=== PATIENT | female | born 1985 | race African-American/Black ===

== ENCOUNTER 2017-07-05 21:18 | Emergency (ER) | payer SELFPAY ==
[2017-07-05] MEDS ORDERED: CEPHALEXIN 500 MG CAPSULE PO ONE (22:39)
[2017-07-05] MEDS ORDERED: SULFAMETHOXAZOLE/TRIMETHOPRIM 800-160 MG TABLET PO ONE (22:39)
--- NOTE | 2017-07-05 22:44 | ER Document Report ---
HPI - HPI Patient complains to provider of: insect bite Pain Level: 3 Context: Patient is a 31-year-old female who comes emergency department for chief complaint of areas on her left upper arm where she believes she was bitten by an insect, she states the areas were initially itchy and red, she states that these have become mildly painful and has had increased redness today. Past medical history of surgically treated hidradenitis suppurativa, she denies any current daily medications. - REPRODUCTIVE Reproductive: DENIES: : - DERM Skin Color: Normal Past Medical History - General Information source: Patient - Social History Smoking Status: Never Smoker Frequency of alcohol use: None Drug Abuse: None Lives with: Family Family History: Reviewed & Not Pertinent, Hypertension - Medical History Medical History: Negative Renal/ Medical History: Denies: Hx Peritoneal Dialysis Past Surgical History: Reports: Other - Axillary surgery for hidradenitis suppurativa - Immunizations Hx Diphtheria, Pertussis, Tetanus Vaccination: Yes Vertical Provider Document - CONSTITUTIONAL General Appearance: WD/WN, No Apparent Distress - INFECTION CONTROL TRAVEL OUTSIDE OF THE [place] IN LAST 30 DAYS: No - HEENT HEENT: Atraumatic, Normal ENT Exam, Normocephalic - NECK Neck: Normal Inspection - RESPIRATORY Respiratory: Breath Sounds Normal, No Respiratory Distress - CARDIOVASCULAR Cardiovascular: Regular Rate, Regular Rhythm - GI/ABDOMEN Gastrointestinal: Abdomen Soft, Abdomen Non-Tender - BACK Back: Normal Inspection - MUSCULOSKELETAL/EXTREMETIES Musculoskeletal/Extremeties: MAEW, FROM, Non-Tender - DERM Integumentary: Warm - There are 3 distinct areas of patchy redness with warmth and erythema which is notable compared to the surrounding areas. Questionable central insect bite. No induration or fluctuance. No nearby lymphadenopathy. Course - Re-evaluation Re-evalutation: Patient does have erythematous and warm mildly tender areas over her left upper lateral forearm. I did apply a bedside ultrasound to the areas, there is no fluid collection. There is no significant induration, there is no fluctuance. Appears to be cellulitis with no evidence of abscess at this time. I do suspect these were insect bites because patient still has a mild amount of itching component. No evidence of necrotizing fasciitis or severe cellulitis. Placing on antihistamines, antibiotics, discussed treatment, follow-up, return precautions. Patient states understanding and agreement. Discharge - Discharge Clinical Impression: Skin infection Insect bite Qualifiers: Encounter type: initial encounter Qualified Code(s): W57.XXXA - Bitten or stung by nonvenomous insect and other nonvenomous arthropods, initial encounter Condition: Stable Disposition: HOME, SELF-CARE Additional Instructions: Examination does indicate insect bite/sting, also indicate early infection, no abscess noted on your evaluation at this time. Take the antibiotics as prescribed, apply warm compress, take the antihistamines as prescribed. Return to the emergency department for any concerning worsening symptoms including pain , fever, or any other concerning symptoms. Prescriptions: Cephalexin Monohydrate [Keflex 500 mg Capsule] 500 mg PO QID #28 capsule Cetirizine HCl [Zyrtec 10 mg Tablet] 1 tab PO DAILY #30 tablet Famotidine [Pepcid 20 mg Tablet] 20 mg PO DAILY #12 tablet Sulfamethoxazole/Trimethoprim [Bactrim Ds Tablet] 1 each PO BID #14 tablet
[2017-07-05 23:32] VITALS: BP 128/68
== END 2017-07-05 23:13 | disposition home or self-care (01) ==
LOC: ER 21:18
DX: T14.8 Other injury of unspecified body region (principal); L08.9 Local infection of the skin and subcutaneous tissue, unspecified; W57.XXXA Bitten or stung by nonvenomous insect and other nonvenomous arthropods, initial encounter
CPT/HCPCS: 99283

== ENCOUNTER 2017-07-19 20:37 | Emergency (ER) | payer SELFPAY ==
--- NOTE | 2017-07-19 22:38 | ER Document Report ---
HPI - HPI Pain Level: 4 Notes: Patient is a 31-year-old female who presents the ED complaining of left ear swelling since this morning and pain. Patient states that the pain does not radiate. Patient denies any internal ear pain or drainage. She still eating and drinking without any difficulties. Patient states that the pain of her ear has been swollen. Patient is not sure if he was bit by an insect, but denies any other injury. Denies any headache, fever, head injury, neck pain/stiffness , changes in vision/speech/mentation/hearing, URI, sore throat, chest pain, palpitations, syncope, cough, shortness of breath, wheeze, dyspnea, abdominal pain, nausea/vomiting/diarrhea, urinary retention, dysuria, or rash. Patient denies any drug allergies or significant medical history otherwise. She admits to smoking but denies any other illicit drug use. Her PCM is [facility]. - ROS Notes: REVIEW OF SYSTEMS: CONSTITUTIONAL : Denies fever, chills, or sweats. Denies recent illness. EENT: see hpi CARDIOVASCULAR: Denies chest pain. Denies palpitations or racing or irregular heart beat. Denies ankle edema. RESPIRATORY: Denies cough, cold, or chest congestion. Denies shortness of breath, difficulty breathing, or wheezing. GASTROINTESTINAL: Denies abdominal pain or distention. Denies nausea, vomiting , or diarrhea. Denies blood in vomitus, stools, or per rectum. Denies black, tarry stools. Denies constipation. GENITOURINARY: Denies difficulty urinating, painful urination, burning, frequency, blood in urine, or discharge. MUSCULOSKELETAL: Denies back or neck pain or stiffness. Denies joint pain or swelling. SKIN: see hpi NEUROLOGICAL: Denies confusion or altered mental status. Denies passing out or loss of consciousness. Denies dizziness or lightheadedness. Denies headache. Denies weakness or paralysis or loss of use of either side. Denies problems with gait or speech. PSYCHIATRIC: Denies anxiety or stress. Denies depression, suicidal ideation, or homicidal ideation. ALL OTHER SYSTEMS REVIEWED AND NEGATIVE. Dictation was performed using [employer] voice recognition software - REPRODUCTIVE Reproductive: DENIES: : - DERM Skin Color: Normal Past Medical History - Social History Smoking Status: Current Every Day Smoker Family History: Reviewed & Not Pertinent, Hypertension Renal/ Medical History: Denies: Hx Peritoneal Dialysis Past Surgical History: Reports: Other - Axillary surgery for hidradenitis suppurativa - Immunizations Hx Diphtheria, Pertussis, Tetanus Vaccination: Yes Vertical Provider Document - CONSTITUTIONAL Agree With Documented VS: Yes Notes: PHYSICAL EXAMINATION: GENERAL: Well-appearing, well-nourished and in no acute distress. HEAD: Atraumatic, normocephalic. EYES: Pupils equal round and reactive to light, extraocular movements intact, sclera anicteric, conjunctiva are normal. ENT: Lt pinna/auricle mildly inflamed vs right and mildly tender. No abscess or erythema noted. No mastoid tenderness or protrusion of the auricle. Crease intact. EAC clear b/l. TM's intact b/l without erythema, fluid, or perforation. Nares patent and without discharge. oropharynx clear without exudates. No tonsilar hypertrophy or erythema. Moist mucous membranes. No sinus tenderness. NECK: Normal range of motion, supple without lymphadenopathy. No rigidity/ meningismus. LUNGS: Breath sounds clear to auscultation bilaterally and equal. No wheezes rales or rhonchi. HEART: Regular rate and rhythm without murmurs, rubs, gallops. Extremities: No cyanosis, clubbing, or edema b/l. Peripheral pulses 2+. Capillary refill less than 3 seconds. NEUROLOGICAL: Cranial nerves grossly intact. Normal speech, normal gait. Normal sensory, motor exams PSYCH: Normal mood, normal affect. SKIN: Warm, Dry, normal turgor, no rashes or lesions noted. - INFECTION CONTROL TRAVEL OUTSIDE OF THE [place] IN LAST 30 DAYS: No - RESPIRATORY O2 Sat by Pulse Oximetry: 99 Course - Re-evaluation Re-evalutation: 07/19/17 22:50 Patient is an afebrile, well-hydrated, 31-year-old female presents the ED with a swollen left auricle, suspect possible mild cellulitis w/o abscess. Vitals are stable. PE otherwise unremarkable at this time. Low suspicion for any mastoiditis, hematoma, meningitis, sepsis, or other deep space infection. As precaution, we will cover her with keflex and bactrim twice daily for 7 days. Conservative measures for symptoms otherwise. Advised recheck with ENT this week. Recheck with your PCM this week as well. Return to the ED with any worsening/concerning symptoms otherwise as reviewed in discharge. Patient is in agreement. - Vital Signs Vital signs: Temp Pulse Resp BP Pulse Ox 99.0 F 82 16 112/64 99 07/19/17 21:19 07/19/17 21:19 07/19/17 21:19 07/19/17 21:19 07/19/17 21:19 Discharge - Discharge Clinical Impression: Cellulitis of auricle of left ear Condition: Stable Disposition: HOME, SELF-CARE Additional Instructions: Maintain adequate fluid and food intake Take antibiotics as directed Tylenol/ibuprofen as needed Monitor symptoms closely for any acute changes Recheck with your PCM this week Schedule a consult with ENT this week for recheck as well Return to the ED with any worsening symptoms and/or development of fever, headache, dizziness, worsening swelling, abscess, purulent discharge, chest pain , palpitations, syncope, shortness of breath, trouble breathing, abdominal pain , n/v/d, or other worsening symptoms that are concerning to you. Prescriptions: Cephalexin Monohydrate [Keflex 500 mg Capsule] 500 mg PO BID #14 capsule Sulfamethoxazole/Trimethoprim [Bactrim Ds Tablet] 1 each PO BID #14 tablet Forms: Smoking Cessation Education Referrals: JACOB ANGELA MD [[facility]] - 07/21/17
[2017-07-20 04:42] VITALS: BP 102/66
== END 2017-07-19 23:10 | disposition home or self-care (01) ==
LOC: ER 20:37
DX: H60.12 Cellulitis of left external ear (principal); F17.200 Nicotine dependence, unspecified, uncomplicated
CPT/HCPCS: 99282

== ENCOUNTER 2018-06-10 12:08 | Emergency (ER) | payer SELFPAY ==
[2018-06-10 12:15] VITALS: BP 133/72
[2018-06-10] MEDS ORDERED: CEPHALEXIN 500 MG CAPSULE PO ONE (12:27)
--- NOTE | 2018-06-10 12:33 | ER Document Report ---
HPI - HPI Patient complains to provider of: Swollen lymph node Onset: Other - 3 days Onset/Duration: Persistent Quality of pain: Achy Pain Level: 2 Context: She presents complaining of tender swollen lymph node to right side of neck for the past 3 days. Patient does states she has had a tender bump in her ear for the past month. Patient denies any fever. Patient denies any sore throat or dental problems. Associated Symptoms: Earache, Other - Tender lymph nodes. denies: Fever Exacerbated by: Denies Relieved by: Denies Similar symptoms previously: No Recently seen / treated by doctor: No - ROS ROS below otherwise negative: Yes Systems Reviewed and Negative: Yes All other systems reviewed and negative - CONSTITUTIONAL Constitutional: DENIES: Fever - EENT EENT: REPORTS: Ear Pain - GASTROINTESTINAL Gastrointestinal: DENIES: Nausea, Patient vomiting - REPRODUCTIVE Reproductive: DENIES: : - DERM Skin Color: Normal Skin Problems: None Past Medical History - General Information source: Patient - Social History Smoking Status: Current Every Day Smoker Smoking Education Provided: Yes Frequency of alcohol use: Occasional Drug Abuse: Marijuana Occupation: none Family History: Reviewed & Not Pertinent, Hypertension Renal/ Medical History: Denies: Hx Peritoneal Dialysis Skin Medical History: Reports Other - Hidradenitis Past Surgical History: Reports: Other - Axillary surgery for hidradenitis suppurativa - Immunizations Hx Diphtheria, Pertussis, Tetanus Vaccination: Yes Vertical Provider Document - CONSTITUTIONAL Agree With Documented VS: Yes Exam Limitations: No Limitations General Appearance: WD/WN, No Apparent Distress - INFECTION CONTROL TRAVEL OUTSIDE OF THE [place] IN LAST 30 DAYS: No - HEENT HEENT: Atraumatic, Normocephalic. negative: Pharyngeal Exudate, Pharyngeal Tenderness, Pharyngeal Erythema, Tympanic Membrane Red, Tympanic Membrane Bulging Notes: Patient with tenderness to right ear dayana, mild erythema, shunt with prominent tonsillar and upper posterior cervical chain lymph node, normal skin color and temperature overlying prominent lymph nodes. - NECK Neck: Lymphadenopathy-Right - RESPIRATORY Respiratory: Breath Sounds Normal, No Respiratory Distress - CARDIOVASCULAR Cardiovascular: Regular Rate, Regular Rhythm - BACK Back: Normal Inspection - MUSCULOSKELETAL/EXTREMETIES Musculoskeletal/Extremeties: LAVONNE SALINAS - NEURO Level of Consciousness: Awake, Alert, Appropriate Motor/Sensory: No Motor Deficit - DERM Integumentary: Warm, Dry, No Rash Course - Re-evaluation Re-evalutation: 06/10/18 12:31 Patient without any obvious dental decay or any skin lesions to the head or neck. Patient does have a mild area of erythema with a central open sore to the dayana of her right ear. Patient states this area has been tender for some time. Will cover with antibiotics and refer to ENT for further follow-up. - Vital Signs Vital signs: Temp Pulse Resp BP Pulse Ox 99.5 F 76 14 133/72 H 97 06/10/18 12:12 06/10/18 12:12 06/10/18 12:12 06/10/18 12:12 06/10/18 12:12 Discharge - Discharge Clinical Impression: Cellulitis of right ear canal Condition: Stable Disposition: HOME, SELF-CARE Instructions: Cellulitis ([facility]), Cephalexin ([facility]), Lymphadenopathy ([facility]) Additional Instructions: Return immediately for any new or worsening symptoms Followup with your primary care provider, call tomorrow to make a followup appointment Follow-up with an manager e learning for further evaluation Prescriptions: Cephalexin Monohydrate [Keflex 500 mg Capsule] 500 mg PO Q6H 5 Days capsule Naproxen [Naprosyn 250 Nmg Tablet] 1 tab PO BID #14 tablet Forms: Smoking Cessation Education Referrals: [facility] [Provider Group] - Follow up as needed
== END 2018-06-10 12:44 | disposition home or self-care (01) ==
LOC: ER 12:08
DX: H60.11 Cellulitis of right external ear (principal); H92.01 Otalgia, right ear; R59.0 Localized enlarged lymph nodes; F17.200 Nicotine dependence, unspecified, uncomplicated
CPT/HCPCS: 99283

== ENCOUNTER 2018-07-09 13:32 | Emergency (ER) | payer BC ==
--- NOTE | 2018-07-09 15:17 | ER Document Report ---
ED General - General Chief Complaint: Abscess Stated Complaint: POSSIBLE ABSCESS Time Seen by Provider: 07/09/18 15:02 Mode of Arrival: Ambulatory Information source: Patient TRAVEL OUTSIDE OF THE [place] IN LAST 30 DAYS: No - HPI Notes: Patient is a pleasant 32-year-old black female history of hidradenitis suppurativa with multiple previous incision and drainages on the right axillary region presents with report of left axillary swelling for the last 2 days. She has no history of diabetes. She denies any fever chills or trauma to the region. She reports no numbness or paresthesia. No chest pain or difficulty breathing. Patient reports she wants only antibiotics and does not want an incision and drainage performed yet, as she thinks she is catching it early, and she reported having significant scarring on the right axillary region which necessitated a larger resection once the incision and drainages were started surgically. No insect bites. - Related Data Allergies/Adverse Reactions: No Known Allergies Allergy (Verified 06/10/18 12:09) Past Medical History - General Information source: Patient - Social History Smoking Status: Current Every Day Smoker Chew tobacco use (# tins/day): No Frequency of alcohol use: Occasional Drug Abuse: None Lives with: Family Family History: Reviewed & Not Pertinent, Hypertension Patient has suicidal ideation: No Patient has homicidal ideation: No Renal/ Medical History: Denies: Hx Peritoneal Dialysis Past Surgical History: Reports: Other - Axillary surgery for hidradenitis suppurativa - Immunizations Hx Diphtheria, Pertussis, Tetanus Vaccination: Yes Review of Systems - Review of Systems -: Yes All other systems reviewed and negative Physical Exam - Vital signs Vitals: Temp Pulse BP Pulse Ox 98.8 F 70 107/69 100 07/09/18 13:44 07/09/18 13:44 07/09/18 13:44 07/09/18 13:44 - Notes Notes: PHYSICAL EXAMINATION: GENERAL: Well-appearing, well-nourished and in no acute distress. HEAD: Atraumatic, normocephalic. EYES: Pupils equal round and reactive to light, extraocular movements intact, conjunctiva are normal. ENT: Nares patent, oropharynx clear without exudates. Moist mucous membranes. NECK: Normal range of motion, supple without lymphadenopathy LUNGS: Breath sounds clear to auscultation bilaterally and equal. No wheezes rales or rhonchi. HEART: Regular rate and rhythm without murmurs ABDOMEN: Soft, nontender, nondistended abdomen. No guarding, no rebound. No masses appreciated. Female : deferred Musculoskeletal: Normal range of motion, no pitting or edema. No cyanosis. NEUROLOGICAL: Cranial nerves grossly intact. Normal speech, normal gait. Normal sensory, motor exams PSYCH: Normal mood, normal affect. SKIN: Warm, Dry, normal turgor. Left axillary cellulitis versus early abscess with tenderness measures 1.5 x 2.5 with out significant induration. Distally, patient is neurovascularly intact with good distal sensation and capillary refill and pulses. no other adjacent abscess or mass noted in the tissue. Right axillary region shows surgical scar without any erythema or tenderness. Course - Re-evaluation Re-evalutation: 07/09/18 15:16 I discussed with the patient the possibility she may need an incision and drainage, she stated she would wait until after antibiotic therapy to see if she still needed incision and drainage. - Vital Signs Vital signs: Temp Pulse Resp BP Pulse Ox 98.8 F 70 107/69 100 07/09/18 13:44 07/09/18 13:44 07/09/18 13:44 07/09/18 13:44 Discharge - Discharge Clinical Impression: Hidradenitis axillaris Condition: Stable Disposition: HOME, SELF-CARE Instructions: Abscess ([facility]) Additional Instructions: Warm compresses to area. Take antibiotics. Return to the emergency department or follow-up with surgery for definitive incision and drainage of the abscess of antibiotics are not successful. Prescriptions: Cephalexin Monohydrate [Keflex 500 mg Capsule] 500 mg PO Q6H 10 Days capsule Sulfamethoxazole/Trimethoprim [Bactrim Ds Tablet] 2 each PO BID #40 tablet Referrals: MAGGIE GALLEGOS MD [Primary Care Provider] - Follow up as needed AISHA ZAVALETA MD [ACTIVE STAFF] - Follow up as needed
[2018-07-09 15:38] VITALS: BP 109/61
== END 2018-07-09 15:40 | disposition home or self-care (01) ==
LOC: ER 13:32
DX: L73.2 Hidradenitis suppurativa (principal); F17.200 Nicotine dependence, unspecified, uncomplicated
CPT/HCPCS: 99283

== ENCOUNTER 2018-10-07 11:08 | Day surgery (SDC) | payer BC, OTHER ==
[2018-10-04 09:24] LABS: HEMOGLOBIN 12.8 g/dL (12.0-15.5); MEAN CORPUSCULAR HEMOGLOBIN 30.5 pg (27.0-33.4); MEAN CORPUSCULAR HGB CONC 34.7 g/dL (32.0-36.0); MEAN CORPUSCULAR VOLUME 88 fl (80-97); PLATELET COUNT 185 10^3/uL (150-450); RED BLOOD COUNT 4.21 10^6/uL (3.72-5.28); RED CELL DISTRIBUTION WIDTH 15.3 % (11.5-14.0); WHITE BLOOD COUNT 7.8 10^3/uL (4.0-10.5)
[2018-10-04 09:48] LABS: ALANINE AMINOTRANSFERASE 21 U/L (9-52); ALBUMIN 3.9 g/dL (3.5-5.0); ALKALINE PHOSPHATASE 92 U/L (38-126); ANION GAP 10 (5-19); ASPARTATE AMINO TRANSFERASE 26 U/L (14-36); BILIRUBIN,DIRECT 0.3 mg/dL (0.0-0.4); BILIRUBIN,TOTAL 0.6 mg/dL (0.2-1.3); BLOOD UREA NITROGEN 8 mg/dL (7-20); CALCIUM 9.2 mg/dL (8.4-10.2); CARBON DIOXIDE 27 mmol/L (22-30); CHLORIDE 105 mmol/L (98-107); GLUCOSE 94 mg/dL (75-110); POTASSIUM 4.5 mmol/L (3.6-5.0); SODIUM 142.2 mmol/L (137-145); TOTAL PROTEIN 6.8 g/dL (6.3-8.2)
[~2018-10-07 11:08] MED LIST: CEFOXITIN SODIUM 2 GM in DEXTROSE 5%-WATER 100 ML IV PRN; DEXAMETHASONE SOD PHOSPHATE INJ 4 MG/1 ML VIAL ONE; GLYCOPYRROLATE 1 MG/5 ML SYRINGE ONE; IBUPROFEN 800 MG in NORMAL SALINE 250 ML IV PRN; LACTATED RINGERS 1000 ML IV PRN; LIDOCAINE 0.5% INJ-PF (5 MG/ML) 50 ML SDV SUBCUT PRN; NEOSTIGMINE METHYLSULFATE 10 MG/10 ML VIAL ONE; ONDANSETRON HCL INJ/PF 4 MG/2 ML SDV ONE; ROCURONIUM BROMIDE INJ 50 MG/5 ML VIAL IV ONE; SUCCINYLCHOLINE CHLORIDE INJ 200 MG/10 ML VIAL ONE
[2018-10-07] MEDS ORDERED: FENTANYL CITRATE INJ/PF 250 MCG/5 ML AMPULE ONE (12:44)
[2018-10-07] MEDS ORDERED: PROPOFOL INJ 200 MG/20 ML VIAL IV ONE (12:44)
[2018-10-07] MEDS ORDERED: MIDAZOLAM 2 MG/2 ML INJ ONE (12:44)
[2018-10-07] MEDS ORDERED: BUPIVACAINE HCL 0.5 % INJ/PF 30 ML SDV ONE (12:50)
[2018-10-07] MEDS ORDERED: FENTANYL CITRATE INJ/PF 100 MCG/2 ML AMPUL IV PRN ×3 (14:02)
[2018-10-07] MEDS ORDERED: PROMETHAZINE HCL INJ 25 MG/1 ML VIAL IV PRN ×2 (14:02)
[2018-10-07] MEDS ORDERED: DIPHENHYDRAMINE HCL 50 MG/ML VIAL IV PRN (14:02)
[2018-10-07] MEDS ORDERED: MEPERIDINE HCL/PF INJ 25 MG/1 ML DISP.SYRIN IV PRN (14:02)
[2018-10-07] MEDS ORDERED: OXYCODONE-ACETAMINOPHEN 5-325 MG TABLET PO PRN ×2 (14:02)
--- NOTE | 2018-10-07 15:30 | Discharge Summary ---
Discharge Summary (SDC) - Discharge Final Diagnosis: Left axillary hidradenitis Date of Surgery: 10/07/18 Discharge Date: 10/07/18 Condition: Stable Treatment or Instructions: Discharge home. Diet as tolerated. Activity, nonstrenuous. Follow-up with me in 7-10 days. [place] 10/325 mg p.o. every 6 hours as needed for pain. 800 mg [id number] ibuprofen 3 times daily with meals. Okay to shower starting Thursday. No tub baths or swimming times 2 weeks. Referrals: ILIA MENDOZA DO [Primary Care Provider] - Discharge Diet: As Tolerated Respiratory Treatments at Home: Deep Breathing/Coughing, Incentive Spirometer Discharge Activity: Balance Activity w/Rest Home Care Assistance: None Needed Report the Following to Your Physician Immediately: Shortness of Breath, Nausea , Vomiting, Increase in Pain, Fever over 101 Degrees, Unusual Bleeding, Redness
[2018-10-07] MEDS ORDERED: HYDROCODONE/ACETAMINOPHEN 10-325 MG TABLET ONE (15:46)
[2018-10-07 17:02] VITALS: BP 108/61
--- NOTE | 2018-10-08 08:19 | Operative Report ---
Nonrecallable Operative Report DATE OF SURGERY: 10/07/18 PREOPERATIVE DIAGNOSIS: Left axillary hidradenitis POSTOPERATIVE DIAGNOSIS: Same as above OPERATION: Excision of all hairbearing axillary skin for hidradenitis (17 cm x 17 cm) SURGEON: MARTHA FARRAR ANESTHESIA: GA TISSUE REMOVED OR ALTERED: Left axillary hairbearing skin (17 cm x 17 cm) COMPLICATIONS: None apparent ESTIMATED BLOOD LOSS: 30 cc PROCEDURE: Drains/implants: 15 Citizen Of [place] round Roman drain. Procedure in detail: After informed consent was obtained, the patient was brought into the operating room and laid in the supine position. The area of the left axilla was prepped and draped in a normal sterile fashion. A 15 blade scalpel was used to create an incision around the hairbearing area of the left axilla. This was a richard shape and measured 17 cm long by 17 cm wide. The dissection was carried through the skin into the subcutaneous tissue. Bovie electrocautery was used to free the skin and subcutaneous tissue from the axillary fascia. Hemostasis was achieved using electrocautery and suture ligation. Next skin flaps were raised medially and laterally. A 15 Citizen Of [place] round Roman drain was placed into the wound and brought out through a separate stab incision. The incision was then closed transversely. The subcutaneous tissue was closed using 2-0 Vicryl suture in simple interrupted fashion. The overlying skin was closed using 3-0 nylon in vertical mattress fashion. A dressing was placed and the procedure was concluded. Condition: Stable.
== END 2018-10-07 17:00 | disposition home or self-care (01) ==
LOC: OROUT 11:08
PROVIDERS: ATTEND Surgery
DX: L73.2 Hidradenitis suppurativa (principal); F17.210 Nicotine dependence, cigarettes, uncomplicated; Z87.2 Personal history of diseases of the skin and subcutaneous tissue
CPT/HCPCS: 36415; 85027; 81025; 80053; 88304 ×2; 11450; J2250; J3490 ×3; J1100; J0694; J3010; J0330; J2405; J7050; J2704; J1741; 400

== ENCOUNTER 2019-04-13 11:30 | Emergency (ER) | payer BC, MEDICAID ==
[2019-04-13] MEDS ORDERED: GUAIFENESIN 600 MG TABLET.SA PO ONE (13:07)
--- NOTE | 2019-04-13 13:13 | ER Document Report ---
ED Respiratory Problem - General Chief Complaint: Congestion Stated Complaint: SINUS ISSUES Time Seen by Provider: 04/13/19 12:55 Primary Care Provider: [facility] [Provider Group] - Follow up as needed KENISHA MARTE DO [ASSOCIATE] - Follow up as needed Mode of Arrival: Ambulatory Information source: Patient Notes: 33-year-old female presented to ED for upper respiratory infection with a blocked right nasal passage. She states that the congestion in her right nose makes it so she is insomnia from anxiety because she is afraid she will not be able to breathe when she is sleeping. She is alert oriented respirations regular and unlabored speaking in full sentences. Patient has a history of hydradenitis. TRAVEL OUTSIDE OF THE [place] IN LAST 30 DAYS: No - HPI Patient complains to provider of: Other - Upper respiratory infection with a blocked right nasal passage Onset: Other - 3 to 4 weeks Duration: Intermittent episodes Initiating Event: URI Quality of pain: Achy Severity: Moderate Pain Level: 4 Context: Smoker Short of Breath: Mild Cough: Nonproductive - Who want you to take some you charted Sputum amount: None Associated symptoms: Congestion, Cough, PND, Runny nose, Sinus pain/pressure Similar symptoms previously: Yes Recently seen / treated by doctor: Yes - Related Data Allergies/Adverse Reactions: No Known Allergies Allergy (Verified 04/13/19 11:32) Past Medical History - General Information source: Patient - Social History Smoking Status: Current Every Day Smoker Cigarette use (# per day): Yes - 2 cigarettes a day Smoking Education Provided: Yes - 4 minutes Frequency of alcohol use: None Drug Abuse: None Lives with: Family Family History: Reviewed & Not Pertinent, Hypertension Patient has suicidal ideation: No Patient has homicidal ideation: No - Past Medical History Cardiac Medical History: Reports: None Pulmonary Medical History: Reports: None EENT Medical History: Reports: None Neurological Medical History: Reports: None Endocrine Medical History: Reports: None Renal/ Medical History: Reports: None Malignancy Medical History: Reports: None GI Medical History: Reports: None Musculoskeletal Medical History: Reports None Skin Medical History: Reports Other - Hydradenitis Psychiatric Medical History: Reports: Hx Anxiety Traumatic Medical History: Reports: None Infectious Medical History: Reports: None Past Surgical History: Reports: Other - Axillary surgery for hidradenitis suppurativa - Immunizations Hx Diphtheria, Pertussis, Tetanus Vaccination: Yes Review of Systems - Review of Systems Constitutional: No symptoms reported EENT: Nose congestion, Nose discharge, Sinus discharge Cardiovascular: No symptoms reported Respiratory: No symptoms reported Gastrointestinal: No symptoms reported Genitourinary: No symptoms reported Female Genitourinary: No symptoms reported Musculoskeletal: No symptoms reported Skin: No symptoms reported Hematologic/Lymphatic: No symptoms reported Neurological/Psychological: No symptoms reported -: Yes All other systems reviewed and negative Physical Exam - Vital signs Vitals: Temp Pulse Resp BP Pulse Ox 98.8 F 84 20 106/65 100 04/13/19 11:42 04/13/19 11:42 04/13/19 11:42 04/13/19 11:42 04/13/19 11:42 Interpretation: Normal - General General appearance: Appears well, Alert - HEENT Head: Normocephalic, Atraumatic Eyes: Normal Pupils: PERRL Ears: Normal External canal: Normal Tympanic membrane: Normal Sinus: Normal Nasal: Purulent discharge, Swelling Mouth/Lips: Normal Mucous membranes: Normal Pharynx: Post nasal drainage Neck: Normal - Respiratory Respiratory status: No respiratory distress Chest status: Nontender Breath sounds: Normal Chest palpation: Normal - Cardiovascular Rhythm: Regular Heart sounds: Normal auscultation Murmur: No - Abdominal Inspection: Normal Distension: No distension Bowel sounds: Normal Tenderness: Nontender Organomegaly: No organomegaly - Back Back: Normal, Nontender - Extremities General upper extremity: Normal inspection, Nontender, Normal color, Normal ROM, Normal temperature General lower extremity: Normal inspection, Nontender, Normal color, Normal ROM, Normal temperature, Normal weight bearing. No: Siddharth's sign - Neurological Neuro grossly intact: Yes Cognition: Normal Orientation: AAOx4 Sandra Coma Scale Eye Opening: Spontaneous [place] Coma Scale Verbal: Oriented Sandra Coma Scale Motor: Obeys Commands [place] Coma Scale Total: 15 Speech: Normal Motor strength normal: LUE, RUE, LLE, RLE Sensory: Normal - Psychological Associated symptoms: Normal affect, Normal mood - Skin Skin Temperature: Warm Skin Moisture: Dry Skin Color: Normal Course - Re-evaluation Re-evalutation: 04/13/19 13:11 After performing a Medical Screening Examination, I estimate there is LOW risk for ACUTE CORONARY SYNDROME, RESPIRATORY FAILURE, SEPSIS OR MENINGITIS, thus I consider the discharge disposition reasonable. I have reevaluated this patient multiple times and no significant life threatening changes are noted. The patient and I have discussed the diagnosis and risks, and we agree with discharging home with close follow-up. We also discussed returning to the Emergency Department immediately if new or worsening symptoms occur. We have discussed the symptoms which are most concerning (e.g., changing or worsening pain, trouble swallowing or breathing, neck stiffness, fever) that necessitate immediate return. - Vital Signs Vital signs: Temp Pulse Resp BP Pulse Ox 98.6 F 88 17 111/62 100 04/13/19 13:23 04/13/19 13:23 04/13/19 13:23 04/13/19 13:23 04/13/19 13:23 Discharge - Discharge Clinical Impression: URI (upper respiratory infection) Qualifiers: URI type: unspecified viral URI Qualified Code(s): J06.9 - Acute upper respiratory infection, unspecified Condition: Stable Disposition: HOME, SELF-CARE Additional Instructions: UPPER RESPIRATORY ILLNESS: You have a viral infection of the respiratory passages -- a "cold." This common infection causes nasal congestion, drainage, and often sore throat and cough. It is highly contagious. The disease usually lasts about 10 to 14 days. There is no "cure" for the viral infection -- it must run its course. If there is a complication, such as bacterial infection in the nose, sinuses, middle ear, or bronchial tubes, antibiotics may be required. The antibiotics won't affect the virus. Drink plenty of fluids. A humidifier may help. An expectorant medication or decongestant may make you more comfortable. Use acetaminophen or ibuprofen for fever or aches. See the doctor if fever persists over two days, if there is any significant worsening of your symptoms, or if you simply fail to improve as expected. Mucinex 600 mg once a day, Flonase nasal spray 2 sprays twice a day, Sudafed 30 mg 3 times a day can all help with your cough cold congestion and sinus congestion. These are all aikv-btc-mdmerix medications that you can buy at the drugstore. The Sudafed you will have to ask the pharmacist for as for the little red pill. He can also use the saline nasal spray and the nasal irrigation that she or using. If these do not improve your symptoms by Thursday please call the ENT I have listed. USE OF ACETAMINOPHEN (Tylenol): Acetaminophen may be taken for pain relief or fever control. It's much sa alejandro than aspirin, offering a wider range of "safe" dosages. It is safe during . Some brand names are Tylenol, Panadol, Datril, Anacin 3, Tempra, and Liquiprin. Acetaminophen can be repeated every four hours. The following are maximum recommended dosages: >89 pounds or adults 650 mg to 900 mg Acetaminophen can be repeated every four hours. Maximum dose not to exceed 4000 mg a day. SMOKING: If you smoke, you should stop smoking. The tar and chemicals in cigarette smoke are harmful. Smoking has been shown to cause: emphysema chronic bronchitis lung cancer mouth and throat cancer stomach and pancreas cancer premature aging defects In addition, smoking increases ear and lung infections in children of smokers. FOLLOW-UP CARE: If you have been referred to a physician for follow-up care, call the physicians office for an appointment as you were instructed or within the next two days. If you experience worsening or a significant change in your symptoms, notify the physician immediately or return to the Emergency Department at any time for re-evaluation. Forms: Smoking Cessation Education Referrals: KENISHA MARTE DO [ASSOCIATE] - Follow up as needed [facility] - Follow up as needed
[2019-04-13 13:25] VITALS: BP 111/62
== END 2019-04-13 13:24 | disposition home or self-care (01) ==
LOC: ER 11:30
DX: J06.9 Acute upper respiratory infection, unspecified (principal); R09.81 Nasal congestion; G47.00 Insomnia, unspecified; F41.9 Anxiety disorder, unspecified; R05 Cough; R09.82 Postnasal drip; R09.89 Other specified symptoms and signs involving the circulatory and respiratory systems; F17.210 Nicotine dependence, cigarettes, uncomplicated
CPT/HCPCS: 99283; 99406

== ENCOUNTER 2019-05-31 01:19 | Outpatient (CLI) | payer BC, MEDICAID ==
[2019-05-31] MEDS ORDERED: ONDANSETRON HCL INJ/PF 4 MG/2 ML SDV ONE (01:52)
[2019-05-31 01:55] LABS: AMORPHOUS SEDIMENT,URINE TRACE /HPF; APPEARANCE,URINE CLOUDY; BILIRUBIN,URINE NEGATIVE (NEGATIVE); COLOR,URINE AMBER; GLUCOSE, URINE NEGATIVE (NEGATIVE); KETONES,URINE TRACE mg/dL (NEGATIVE); LEUKOCYTE ESTERASE,URINE LARGE (NEGATIVE); NITRITE,URINE NEGATIVE (NEGATIVE); PROTEIN,URINE 100 mg/dL (NEGATIVE); URINE SPECIFIC GRAVITY 1.025
[2019-05-31] MEDS: RINGERS SOLUTION,LACTATED 1,000 ML IV PRN ×2 (01:55→03:28)
[2019-05-31 02:09] LABS: URINE AMPHETAMINES SCREEN NEGATIVE; URINE BARBITURATES SCREEN NEGATIVE; URINE BENZODIAZEPINES SCREEN NEGATIVE; URINE COCAINE SCREEN NEGATIVE; URINE METHADONE SCREEN NEGATIVE; URINE PHENCYCLIDINE SCREEN NEGATIVE
[2019-05-31] MEDS ORDERED: ONDANSETRON HCL INJ/PF 4 MG/2 ML SDV IV ONE (02:15)
[2019-05-31 02:17] LABS: URINE MARIJUANA (THC) SCREEN UNCONFIRMED POSITIVE
[2019-05-31] MEDS ORDERED: HYDROXYZINE PAMOATE 50 MG CAPSULE ONE (02:44)
[2019-05-31] MEDS ORDERED: CEFTRIAXONE INJ 1000 MG VIAL ONE (02:44)
[2019-05-31] MEDS ORDERED: HYDROXYZINE PAMOATE 50 MG CAPSULE PO ONE (03:00)
[2019-05-31] MEDS ORDERED: CEFTRIAXONE 1 GM/D5W RTU 1 GM/50 ML RTUPB IV ONE (03:00)
--- NOTE | 2019-05-31 03:55 | RADIOLOGY REPORT (SQ) ---
EXAM DESCRIPTION: US LIMITED COMPLETED DATE/TME: 05/31/2019 00:00 CLINICAL HISTORY: 33 years, Female, 25 weeks with blood in urine COMPARISON: None. TECHNIQUE: Transabdominal pelvic ultrasound with grayscale and color images 18. LIMITATIONS: None. FINDINGS: The cervix appears closed and measures approximately 3.8 cm in length. A single live intrauterine is identified. The heart rate measures 149 bpm. The fetus is in the breech position. The placenta is anterior with no evidence of placental previa or abruption. The BRANDT is within normal limits measuring 15.1 cm. IMPRESSION: Single live intrauterine , as described above. copyright 2010 [employer]- All Rights Reserved
--- NOTE | 2019-05-31 03:58 | RADIOLOGY REPORT (SQ) ---
EXAM DESCRIPTION: US RETROPERITONEUM COMPLETED DATE/TME: 05/31/2019 02:35 CLINICAL HISTORY: 33 years, Female, 25 weeks with blood in urine COMPARISON: None. TECHNIQUE: Grayscale and color images of the retroperitoneal were obtained. LIMITATIONS: None. FINDINGS: Both kidneys are normal in size, shape, and echotexture. Right kidney measures 12.2 x 5.7 x 5.5 cm. The left kidney measures 12.2 x 5.6 x 6.5 cm. There is mild right-sided hydronephrosis. No abnormal masses or calcifications are seen in either kidney. No evidence of left-sided hydronephrosis. The urinary bladder appears unremarkable. There are no luminal abnormalities. The prevoid volume measures 197 mL. Both ureteral jets are identified. Incidental note is made of cholelithiasis. No wall thickening or pericholecystic fluid is identified. The common bile duct is normal in caliber measuring up to 2 mm. IMPRESSION: Mild right-sided hydronephrosis. Cholelithiasis. copyright 2010 [employer]- All Rights Reserved
== END 2019-05-31 04:57 | disposition home or self-care (01) ==
LOC: LC 01:19
PROVIDERS: ATTEND Obstetrics & Gynecology
DX: O47.02 False labor before 37 completed weeks of gestation, second trimester (principal); O99.612 Diseases of the digestive system complicating pregnancy, second trimester; K80.20 Calculus of gallbladder without cholecystitis without obstruction; O99.89 Other specified diseases and conditions complicating pregnancy, childbirth and the puerperium; N13.30 Unspecified hydronephrosis; R10.9 Unspecified abdominal pain; O99.332 Smoking (tobacco) complicating pregnancy, second trimester; F17.210 Nicotine dependence, cigarettes, uncomplicated; Z3A.25 25 weeks gestation of pregnancy
CPT/HCPCS: 59899; 87086; 81001; 80307; 76770; 76815; J0696; J2405

== ENCOUNTER 2019-07-31 20:43 | Outpatient (CLI) | payer BC, MEDICAID ==
[2019-07-31 21:27] LABS: BACTERIA (WET MOUNT) 4+ BACTERIA SEEN; EPITHELIALS (WET MOUNT) 4+ EPITHELIALS SEEN; RBCS (WET MOUNT) FEW RBCS SEEN; T.VAGINALIS (WET MOUNT) NO TRICHOMONAS SEEN; WBCS (WET MOUNT) FEW WBCS SEEN; YEAST (WET MOUNT) NO YEAST SEEN
[2019-07-31] MEDS ORDERED: CEFTRIAXONE 1 GM/D5W RTU 1 GM/50 ML RTUPB IV ONE (22:32)
[2019-07-31] MEDS ORDERED: RINGERS SOLUTION,LACTATED 1,000 ML IV ONE (22:33)
[2019-07-31] MEDS ORDERED: RINGERS SOLUTION,LACTATED 1,000 ML IV PRN (22:33)
[2019-07-31] MEDS ORDERED: CEFTRIAXONE INJ 1000 MG VIAL ONE (22:48)
[2019-07-31 22:51] LABS: CHLAM PCR NOT DETECTED (NOT DETECT)
[2019-07-31 23:33] LABS: APPEARANCE,URINE CLEAR; BILIRUBIN,URINE NEGATIVE (NEGATIVE); COLOR,URINE YELLOW; GLUCOSE, URINE NEGATIVE (NEGATIVE); KETONES,URINE 20 mg/dL (NEGATIVE); LEUKOCYTE ESTERASE,URINE MODERATE (NEGATIVE); NITRITE,URINE NEGATIVE (NEGATIVE); PROTEIN,URINE NEGATIVE (NEGATIVE); URINE SPECIFIC GRAVITY 1.008; UROBILINOGEN,URINE NEGATIVE mg/dL (<2.0)
[2019-07-31 23:34] LABS: ABSOLUTE EOSINOPHILS # (AUTO) 0.1 10^3/uL (0.0-0.6); ABSOLUTE LYMPHOCYTES (AUTO) 3.1 10^3/uL (0.5-4.7); ABSOLUTE MONOCYTES (AUTO) 0.6 10^3/uL (0.1-1.4); ABSOLUTE NEUT (AUTO) 5.6 10^3/uL (1.7-8.2); BASOPHILS % (AUTO) 0.2 % (0-2); HEMATOCRIT 30.8 % (36.0-47.0); HEMOGLOBIN 10.3 g/dL (12.0-15.5); LYMPHOCYTES % (AUTO) 32.7 % (13-45); MEAN CORPUSCULAR HEMOGLOBIN 27.7 pg (27.0-33.4); MEAN CORPUSCULAR HGB CONC 33.4 g/dL (32.0-36.0); MEAN CORPUSCULAR VOLUME 83 fl (80-97); PLATELET COUNT 167 10^3/uL (150-450); RED BLOOD COUNT 3.71 10^6/uL (3.72-5.28); RED CELL DISTRIBUTION WIDTH 14.9 % (11.5-14.0); SEGMENTED NEUTROPHILS % (AUTO) 60.1 % (42-78); TOTAL CELLS COUNTED % (AUTO) 100 %; WHITE BLOOD COUNT 9.3 10^3/uL (4.0-10.5)
[2019-07-31 23:45] LABS: URINE AMPHETAMINES SCREEN NEGATIVE; URINE BARBITURATES SCREEN NEGATIVE; URINE BENZODIAZEPINES SCREEN NEGATIVE; URINE COCAINE SCREEN NEGATIVE; URINE METHADONE SCREEN NEGATIVE; URINE PHENCYCLIDINE SCREEN NEGATIVE
[2019-07-31 23:48] LABS: ALKALINE PHOSPHATASE 128 U/L (38-126); ANION GAP 8 (5-19); ASPARTATE AMINO TRANSFERASE 15 U/L (14-36); BILIRUBIN,DIRECT 0.2 mg/dL (0.0-0.4); BILIRUBIN,TOTAL 0.3 mg/dL (0.2-1.3); BLOOD UREA NITROGEN 4 mg/dL (7-20); CALCIUM 8.9 mg/dL (8.4-10.2); CARBON DIOXIDE 21 mmol/L (22-30); CHLORIDE 107 mmol/L (98-107); GLUCOSE 73 mg/dL (75-110); POTASSIUM 3.8 mmol/L (3.6-5.0); TOTAL PROTEIN 5.8 g/dL (6.3-8.2)
[2019-08-01 00:14] LABS: URINE MARIJUANA (THC) SCREEN UNCONFIRMED POSITIVE
--- NOTE | 2019-08-01 01:30 | Non Stress Test Report ---
Non Stress Test Datetime Report Generated by CPN: 08/01/2019 01:29 DEMOGRAPHIC Test Number: 1 EGA NST: 34.3 INDICATION Indication for Study: Ordered by Provider VITAL SIGNS Temperature - NST: 97.8 Pulse - NST: 84 RESP - NST: 19 NBPSYS NST: 113 NBPDIA NST: 63 URINE RESULTS Urine Protein, NST: Positive Urine Ketones - NST: Negative Urine Glucose - NST: Negative Urine Blood - NST: Negative MONITORING Monitor Explained: Monitor Explained; Test Explained; Patient Verbalized Understanding Time on Monitor: 08/01/2019 21:12 Time off Monitor: 08/01/2019 01:12 NST Duration: -1200 NST INTERVENTIONS NST Interventions: PO Hydration; IV Fluids Physician Notified NST: Dr. Hoffmam BABY A: [id number] BABY A Movement : Present Contraction Frequency : irreg FHR Baseline : 140 Accelerations : 15X15 Decelerations : None Variability : Moderate 6-25bpm NST Review: Meets Criteria for Reactive NST NST Review and Verified By : Lucinda Whiteside RN NST Results: Reactive NST REPORT Report Trigger: Send Report
[2019-08-01] MEDS ORDERED: CEPHALEXIN 500 MG CAPSULE PO SCH (10:00)
== END 2019-08-01 01:19 | disposition home or self-care (01) ==
LOC: LC 20:43
PROVIDERS: ATTEND Student in an Organized Health Care Education/Training Program
PROC: 4A1HXCZ Monitoring of Products of Conception, Cardiac Rate, External Approach (ICD-10-PCS; principal; 2019-07-31)
DX: O23.43 Unspecified infection of urinary tract in pregnancy, third trimester (principal); O99.333 Smoking (tobacco) complicating pregnancy, third trimester; F17.210 Nicotine dependence, cigarettes, uncomplicated; Z3A.34 34 weeks gestation of pregnancy
CPT/HCPCS: 59025; 36415; 87210; 82962; 85025; 80053; 81001; 80307; 87491; 87591; 84112; G0480 ×2; J0696; 80349

== ENCOUNTER 2019-08-09 09:29 | Outpatient (CLI) | payer BC, MEDICAID | END 2019-08-09 10:35 | disposition home or self-care (01) | LOC: LC 09:29 | PROVIDERS: ATTEND Obstetrics & Gynecology | PROC: 4A1HXCZ Monitoring of Products of Conception, Cardiac Rate, External Approach (ICD-10-PCS; principal; 2019-08-09) | DX: Z34.83 Encounter for supervision of other normal pregnancy, third trimester (principal) | CPT/HCPCS: 59025 ==

== ENCOUNTER 2019-08-17 16:26 | Outpatient (CLI) | payer BC, MEDICAID ==
--- NOTE | 2019-08-17 16:32 | Non Stress Test Report ---
Non Stress Test Datetime Report Generated by CPN: 08/17/2019 16:31 DEMOGRAPHIC EGA NST: 35.4 INDICATION Indication for Study: Ordered by Provider VITAL SIGNS Temperature - NST: 98.0 MONITORING Monitor Explained: Monitor Explained; Test Explained; Patient Verbalized Understanding Time on Monitor: 08/09/2019 09:38 Time off Monitor: 08/09/2019 10:36 NST Duration: 58 NST INTERVENTIONS NST Interventions: PO Hydration; Reposition Patient Physician Notified NST: Dr. Rider on unit, reviewed fht BABY A: [id number] BABY A Movement : Present Contraction Frequency : none FHR Baseline : 140 Accelerations : 15X15 Decelerations : None Variability : Moderate 6-25bpm NST Review: Meets Criteria for Reactive NST NST Review and Verified By : Maria Del Rosario Parmar RN NST Results: Reactive NST REPORT Report Trigger: Send Report
[2019-08-17 18:01] LABS: APPEARANCE,URINE CLOUDY; BILIRUBIN,URINE NEGATIVE (NEGATIVE); COLOR,URINE YELLOW; GLUCOSE, URINE NEGATIVE (NEGATIVE); KETONES,URINE 20 mg/dL (NEGATIVE); LEUKOCYTE ESTERASE,URINE LARGE (NEGATIVE); NITRITE,URINE NEGATIVE (NEGATIVE); PROTEIN,URINE 30 mg/dL (NEGATIVE); URINE SPECIFIC GRAVITY 1.014; UROBILINOGEN,URINE NEGATIVE mg/dL (<2.0)
[2019-08-17 18:56] LABS: URINE AMPHETAMINES SCREEN NEGATIVE; URINE BARBITURATES SCREEN NEGATIVE; URINE BENZODIAZEPINES SCREEN NEGATIVE; URINE COCAINE SCREEN NEGATIVE; URINE METHADONE SCREEN NEGATIVE; URINE PHENCYCLIDINE SCREEN NEGATIVE
[2019-08-17 18:58] LABS: URINE MARIJUANA (THC) SCREEN UNCONFIRMED POSITIVE
== END 2019-08-17 19:22 | disposition home or self-care (01) ==
LOC: LC 16:26
PROVIDERS: ATTEND Obstetrics & Gynecology
PROC: 4A1HXCZ Monitoring of Products of Conception, Cardiac Rate, External Approach (ICD-10-PCS; principal; 2019-08-17)
DX: O47.03 False labor before 37 completed weeks of gestation, third trimester (principal); Z3A.36 36 weeks gestation of pregnancy
CPT/HCPCS: 59025; 81005; 80307; G0480 ×2; 80349

== ENCOUNTER → 2019-08-18 | Outpatient (CLI) | payer BC, MEDICAID ==
--- NOTE | 2019-08-18 12:43 | RADIOLOGY REPORT (SQ) ---
EXAM DESCRIPTION: U/S PROFILE W/O STRESS COMPLETED DATE/TIME: 08/18/2019 12:22 pm REASON FOR STUDY: BPP early labor COMPARISON: 05/31/2019 TECHNIQUE: Limited boateng-scale realtime and static images of the fetus to measure specified parameter s. LIMITATIONS: None. FINDINGS: HEART RATE: 168 beats per minute. BRANDT: 14.4 BREATHING MOVEMENT: 2 points. MOVEMENT: 2 points. POSTURE AND TONE: 2 points. QUALITATIVE BRANDT: 2 points. OTHER: No other significant finding. IMPRESSION: BIOPHYSICAL PROFILE: 07/07. Trimester of : Third - 28 weeks to delivery COMMENT: BREATHING MOVEMENTS: 2 POINTS: PRESENT 0 POINTS: ABSENT MOTION: 2 POINTS: PRESENT 0 POINTS: ABSENT TONE: 2 POINTS: PRESENT 0 POINTS: ABSENT AMNIOTIC FLUID VOLUME: 2 POINTS: LARGEST POCKET GREATER THAN 2 CM DEPTH. 0 POINTS: NO POCKET OF 2 CM. TECHNICAL DOCUMENTATION: JOB ID: [id number] [employer]- All Rights Reserved Reading location - IP/workstation name: [email or web address]
--- NOTE | 2019-08-18 14:06 | Non Stress Test Report ---
Non Stress Test Datetime Report Generated by CPN: 08/18/2019 14:05 DEMOGRAPHIC EGA NST: 36.6 EGA NST: 36.5 INDICATION Indication for Study: Ordered by Provider Indication for Study: Ordered by Provider Indication for Study: Ordered by Provider Indication for Study (NST) Other: repeat sent from office MONITORING Monitor Explained: Monitor Explained; Test Explained; Patient Verbalized Understanding Monitor Explained: Monitor Explained; Test Explained; Patient Verbalized Understanding Monitor Explained: Monitor Explained; Test Explained; Patient Verbalized Understanding Time on Monitor: 08/18/2019 11:00 Time on Monitor: 08/17/2019 17:36 Time off Monitor: 08/18/2019 11:27 Time off Monitor: 08/17/2019 19:22 NST Duration: 27 NST Duration: 106 NST INTERVENTIONS NST Interventions: PO Hydration NST Interventions: None NST Interventions: PO Hydration Physician Notified NST: A Hernandez CNM Physician Notified NST: CTara Tompkins, CNM BABY A: [id number] BABY A Movement : Present Contraction Frequency : x1 Contraction Frequency : occasional FHR Baseline : 145 FHR Baseline : 145 Accelerations : 15X15 Accelerations : 15X15 Decelerations : Variable Decelerations : None Variability : Moderate 6-25bpm Variability : Moderate 6-25bpm NST Review: Meets Criteria for Reactive NST NST Review: Meets Criteria for Reactive NST NST Review and Verified By : Radha Garcia RNC NST Review and Verified By : lilia zhao rn NST Results: Reactive NST Results: Reactive NST REPORT Report Trigger: Send Report
== END ==
LOC: LC 10:11
PROVIDERS: ATTEND Obstetrics & Gynecology Gynecology
PROC: 4A1HXCZ Monitoring of Products of Conception, Cardiac Rate, External Approach (ICD-10-PCS; principal; 2019-08-18)
DX: Z34.93 Encounter for supervision of normal pregnancy, unspecified, third trimester (principal)
CPT/HCPCS: 59025; 76819

== ENCOUNTER 2019-08-23 09:44 | Outpatient (CLI) | payer BC, MEDICAID | END 2019-08-23 11:08 | disposition home or self-care (01) | LOC: LC 09:44 | PROVIDERS: ATTEND Obstetrics & Gynecology | PROC: 4A1HXCZ Monitoring of Products of Conception, Cardiac Rate, External Approach (ICD-10-PCS; principal; 2019-08-23) | DX: O99.333 Smoking (tobacco) complicating pregnancy, third trimester (principal); F17.210 Nicotine dependence, cigarettes, uncomplicated; Z3A.37 37 weeks gestation of pregnancy | CPT/HCPCS: 59025 ==

== ENCOUNTER 2019-09-01 18:06 | Inpatient (IN) | payer BC, MEDICAID ==
[2019-09-01] MEDS ORDERED: OXYTOCIN 10 UNIT/ML VIAL ONE (18:11)
[2019-09-01] MEDS ORDERED: LIDOCAINE 1% INJ-PF (10 MG/ML) 30 ML SDV ONE (18:12)
[2019-09-01] MEDS ORDERED: MISOPROSTOL 0.2 MG TABLET ONE (18:12)
[2019-09-01] MEDS ORDERED: OXYTOCIN/NORMAL SALINE 20 UNIT/1,000 ML RTUINJ ONE (18:12)
[2019-09-01] MEDS: RINGERS SOLUTION,LACTATED 1,000 ML IV PRN (18:32)
[2019-09-01] MEDS ORDERED: RINGERS SOLUTION,LACTATED 300 ML IV ONE (18:38)
[2019-09-01 18:53] LABS: APPEARANCE,URINE CLOUDY; BILIRUBIN,URINE NEGATIVE (NEGATIVE); COLOR,URINE YELLOW; GLUCOSE, URINE NEGATIVE (NEGATIVE); KETONES,URINE NEGATIVE (NEGATIVE); LEUKOCYTE ESTERASE,URINE LARGE (NEGATIVE); NITRITE,URINE NEGATIVE (NEGATIVE); PROTEIN,URINE 30 mg/dL (NEGATIVE); URINE SPECIFIC GRAVITY 1.015
[2019-09-01 18:57] LABS: ABSOLUTE LYMPHOCYTES (AUTO) 2.4 10^3/uL (0.5-4.7); ABSOLUTE MONOCYTES (AUTO) 0.7 10^3/uL (0.1-1.4); ABSOLUTE NEUT (AUTO) 5.3 10^3/uL (1.7-8.2); BASOPHILS % (AUTO) 0.2 % (0-2); EOSINOPHILS % (AUTO) 0.4 % (0-6); HEMATOCRIT 32.4 % (36.0-47.0); HEMOGLOBIN 10.6 g/dL (12.0-15.5); LYMPHOCYTES % (AUTO) 28.5 % (13-45); MEAN CORPUSCULAR HEMOGLOBIN 26.8 pg (27.0-33.4); MEAN CORPUSCULAR HGB CONC 32.8 g/dL (32.0-36.0); MEAN CORPUSCULAR VOLUME 82 fl (80-97); MONOCYTES % (AUTO) 7.8 % (3-13); PLATELET COUNT 192 10^3/uL (150-450); RED BLOOD COUNT 3.96 10^6/uL (3.72-5.28); RED CELL DISTRIBUTION WIDTH 15.3 % (11.5-14.0); SEGMENTED NEUTROPHILS % (AUTO) 63.1 % (42-78); TOTAL CELLS COUNTED % (AUTO) 100 %; WHITE BLOOD COUNT 8.4 10^3/uL (4.0-10.5)
[2019-09-01 19:07] LABS: URINE AMPHETAMINES SCREEN NEGATIVE; URINE BARBITURATES SCREEN NEGATIVE; URINE BENZODIAZEPINES SCREEN NEGATIVE; URINE COCAINE SCREEN NEGATIVE; URINE METHADONE SCREEN NEGATIVE; URINE PHENCYCLIDINE SCREEN NEGATIVE
[2019-09-01 19:13] LABS: URINE MARIJUANA (THC) SCREEN UNCONFIRMED POSITIVE
[2019-09-01] MEDS ORDERED: DINOPROSTONE 10 MG VAGINAL INSERT.SR ONE (19:17)
--- NOTE | 2019-09-01 22:50 | Admission Physical ---
Datetime Report Generated by CPN: 09/01/2019 22:50 CURRENT ADMISSION Chief Complaint: Scheduled Induction of Labor Indication for Induction: Maternal Diabetes Admit Impression : Term, Intrauterine ; Induction of Labor Admit Plan: Admit to Unit; Initiate Labor Induction Protocol ALLERGIES Medication Allergies: No Medication Allergies: No Known Allergies (09/01/2019) Latex: No Latex Allergies Food Allergies: denies Environmental Allergies: denies OBSTETRICAL HISTORY EDC: 09/09/2019 00:00 : 4 Para: 2 Term: 2 IAB: 1 Livin Cesareans: 0 Multiple Births: 0 Gestational Diabetes: No Rh Sensitization: No Incompetent Cervix: No SHRADDHA: No Infertility: No ART Treatment: No Uterine Anomaly: No IUGR: No Hx Previous C/S: No Macrosomia: No Hx Loss/Stillborn: No PIH: No Hx : No Placenta Previa/Abruption: No Depression/PP Depression: No PTL/PROM: No Post Hemorrhage: No Current Procedures: Ultrasound Obstetrical History Comments: g1-2005,term, , female, 8lb oz g2-2008, 38 weeks, 10lb, female, labor was stopped with a shot g3-EAB 2nd trimester g4- current SEE RECORDS Alcohol: No Marijuana : Yes Marijuana Comments: denies but positive in urine Again positive after patient denied on interview Admits to 3 weeks ago Cocaine: No Other Illicit Drugs: No Cigarettes: Current Some Day Smoker. 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 Heart Disease: No Hosp/Surgery: Yes Autoimmune Disorder: No Anesthetic Complications: No Kidney Disease: No Abnormal Pap Smear: No Neuro/Epilepsy: No Psychiatric Disorders: No Other Medical Diseases: No Hepatitis/Liver Disease: No Significant Family History: No Varicosities/Phlebitis: No Trauma/Violence : No Thyroid Dysfunction: No Medical History Comments: childbirth x 2, smoker, surgery for hyperhidrosis INFECTIOUS HISTORY Gonorrhea: No Genital Herpes: No Chlamydia: No Tuberculosis: No Syphilis: No Hepatitis: No HIV/AIDS Exposure: No Rash or Viral Illness: No HPV: No PHYSICAL EXAM General: Normal HEENT: Normal Neurologic: Normal Thyroid: Normal Heart: Normal Lungs: Normal Breast: Normal Back: Deferred Abdomen: Normal Genitourinary Exam: Normal Extremities: Normal DTRs: Normal Pelvic Type: Adequate Vital Signs: Reviewed VAGINAL EXAM Dilatation: 1 Effacement: 50 Station: -2 MEMBRANES Pooling: Negative Membranes: Intact FETUS A EGA: 38.6 Monitoring: External US FHR- Baseline: 150 Variability: Moderate 6-25bpm Decelerations: None FHR Category: Category I Presentation: Vertex Admit Comment: admit for labor induction PLANS FOR LABOR AND DELIVERY Labor and Delivery: None Pain Management: Epidural Feeding Preference: Formula Benefit of Breast Feed Discussed: Yes Circumcision: Yes INFORMED CONSENT Signature: with User ID: [email or web address]
[2019-09-02] MEDS ORDERED: INFLUENZA QUAD (6MOS+) 2019-20 VAC 0.5 ML SYR IM ONE (08:00)
[2019-09-02] MEDS ORDERED: OXYTOCIN/NORMAL SALINE 20 UNIT/1,000 ML RTUINJ IV PRN ×2 (09:10→17:40)
[2019-09-02] MEDS ORDERED: OXYTOCIN/NORMAL SALINE 0 UNIT/0 ML RTUINJ ONE (09:45)
[2019-09-02] MEDS: RINGERS SOLUTION,LACTATED 1,000 ML IV PRN (13:15)
[2019-09-02] MEDS ORDERED: EPHEDRINE SULFATE INJ 50 MG/1 ML AMPULE ONE (15:31)
[2019-09-02] MEDS ORDERED: BUPIVACAINE HCL 0.25 % INJ/PF (2.5 MG/1 ML) 30 ML VIAL ONE (15:32)
[2019-09-02] MEDS ORDERED: FENTANYL/BUPIVACAINE/NS/PF 300 MCG/150 ML RTUINJ EPI ONE (15:32)
[2019-09-02] MEDS ORDERED: PHENYLEPHRINE HCL INJ/PF 10 MG/1 ML SDV ONE (15:35)
[2019-09-02] MEDS ORDERED: FENTANYL CITRATE INJ/PF 100 MCG/2 ML AMPUL ONE (15:35)
[2019-09-02] MEDS ORDERED: PROMETHAZINE HCL INJ 25 MG/1 ML VIAL IV PRN (17:40)
[2019-09-02] MEDS ORDERED: BENZOCAINE/MENTHOL AEROSOL SPRAY 56 ML TOP PRN (17:40)
[2019-09-02] MEDS ORDERED: MAGNESIUM HYDROXIDE SUSP 30 ML UDCUP PO PRN (17:40)
[2019-09-02] MEDS ORDERED: ZOLPIDEM TARTRATE 5 MG TABLET PO PRN (17:40)
[2019-09-02] MEDS ORDERED: DIBUCAINE 1% OINTMENT 56 GM TP PRN (17:40)
[2019-09-02] MEDS ORDERED: DIPHENHYDRAMINE HCL 25 MG CAPSULE PO PRN (17:40)
[2019-09-02] MEDS ORDERED: GLYCERIN/WITCH HAZEL LEAF 1 EACH MED..WIPE TP PRN (17:40)
[2019-09-02] MEDS ORDERED: PROMETHAZINE HCL 25 MG TABLET PO PRN (17:40)
[2019-09-02] MEDS ORDERED: MEASLES,MUMPS&RUBELLA VACC/PF 0.5 ML VIAL SUBCUT PRN (17:40)
[2019-09-02] MEDS ORDERED: ACETAMINOPHEN 650 MG SUPP.RECT PR PRN (17:40)
[2019-09-02] MEDS ORDERED: DIPH/PERTUSS(ACELL)/TETANUS VAC/PF 0.5 ML SYR (>=10YO) IM PRN (17:40)
[2019-09-02] MEDS ORDERED: PROMETHAZINE HCL 25 MG SUPP.RECT PR PRN (17:40)
[2019-09-02] MEDS ORDERED: PSEUDOEPHEDRINE HCL 30 MG TABLET PO PRN (17:40)
[2019-09-02] MEDS ORDERED: NA PHOS,M-B/NA PHOS,DI-BA (ADULT) 133 ML ENEMA PR PRN (17:40)
--- NOTE | 2019-09-02 18:29 | Warning Signs in Babies ---
VOD Warning Signs Datetime Report Generated by [facility]: 09/02/2019 18:28 VOD#608 -Warning Signs in Babies: Needs to be viewed. (05/31/2019 01:22:Debbie Connelly RN)
--- NOTE | 2019-09-02 18:56 | Delivery Summary ---
Del Sum A-C Datetime Report Generated by CPN: 09/02/2019 18:55 DELIVERY PERSONNEL DELIVERY PERSONNEL: [id number] Delivery Doctor:: Fer Leone MD Labor and Delivery Nurse:: Debbie Connelly RN Labor and Delivery Nurse:: Concepcion Yoo RN Nursery Nurse:: Yina Zaman RN Additional Personnel: : Terrell Foy RN MATERNAL INFORMATION Delivery Anesthesia: Epidural Medications After Delivery: Pitocin Bolus-Please Comment Meds After Delivery Comment: 20 units pitocin after placenta delivery Delivery QBL: 125 Maternal Complications: None LABOR SUMMARY EDC: 09/09/2019 00:00 No. Babies in Womb: 1 Attempted: No Labor Anesthesia: Epidural LABOR INFORMATION Reason for Induction: Maternal Diabetes Onset of Labor: 09/02/2019 09:58 Complete Dilatation: 09/02/2019 17:16 Cervical Ripening Agents: Cervidil Oxytocin: Induction Group B Beta Strep: neg Steroids Given: None Reason Steroids Not Administered: Not Applicable MEMBRANES Membranes Rupture Method: Artificial Rupture of Membranes: 09/02/2019 13:29 Length of Rupture (hr): 4.00 Amniotic Fluid Color: Clear Amniotic Fluid Amount: Small Amniotic Fluid Odor: Normal STAGES OF LABOR Stage 1 hr: 7 Stage 1 min: 18 Stage 2 hr: 0 Stage 2 min: 13 Stage 3 hr: 0 Stage 3 min: 3 Total Time in Labor hr: 7 Total Time in Labor min: 34 VAGINAL DELIVERY Episiotomy: None Laceration #1: None Laceration Extension #1: N/A Laceration Repair: Not Applicable Sponge Count Correct: Yes Sharps Count Correct: Yes CSECTION DELIVERY Primary Indication: N/A Secondary Indication: N/A CSection Urgency: N/A CSection Incidence: N/A Labor: N/A Elective: N/A CSection Incision: N/A BABY A INFORMATION Delivery Date/Time: 09/02/2019 17:29 Method of Delivery: Vaginal Born in Route : No : N/A Forceps: N/A Vacuum Extraction: Successful Shoulder Dystocia : No PRESENTATION/POSITION BABY A Presentation: Cephalic Cephalic Presentation: Vertex Vertex Position: OA Breech Presentation: N/A PLACENTA INFORMATION BABY A Placenta Delivery Time : 09/02/2019 17:32 Placenta Method of Delivery: Spontaneous Placenta Status: Delivered SCORES BABY A Heart Rate 1 min: >100 bpm Resp Effort 1 min: Good Cry Reflex Irritability 1 min: Cough or Sneeze or Pulls Away Muscle Tone 1 min: Active Motion Color 1 min: Blue/Pale Resuscitation Effort 1 min: Tactile Stimulation SCORE 1 MIN: 8 Heart Rate 5 min: >100 bpm Resp Effort 5 min: Good Cry Reflex Irritability 5 min: Cough or Sneeze or Pulls Away Muscle Tone 5 min: Active Motion Color 5 min: Body [place], Extremities Blue Resuscitation Effort 5 min: N/A SCORE 5 MIN: 9 INFANT INFORMATION BABY A Gestational Age at Delivery: 39.0 Gestational Status: Full Term- 39- 40.6 Weeks Infant Outcome : Liveborn Condition : Stable Infant Sex: Male IDENTIFICATION BABY A Infant Verification Date/Time: 09/02/2019 18:02 ID Band Number: [id number] Mother's Name Verified: Yes RN Verifying : Maira Connelly RN/TTara Foy RN WEIGHT/LENGTH BABY A Birthweight (gm): 3400 Weight (lb): 7 Infant Weight (oz): 8 Infant Length (in): 21.00 Infant Length (cm): 53.34 CORD INFORMATION BABY A No. Cord Vessels: 3 Nuchal Cord : N/A True Knot: 1 Cord Blood Taken: Yes-For Storage (Mom's Blood type +) Suction: Mouth ASSESSMENT BABY A Complications: Multiple Variable Decels Physical Findings at Delivery: Other Physical Findings- Other: see nursery notes Respirations: Appears Normal Skin to Skin: Yes Survey Researcher/ALS Called : No Infant Care By: Yina Zaman RN Transferred To: Remains with Mother BABY B INFORMATION : N/A SIGNATURES Signature: with User ID: [email or web address]
[2019-09-02] MEDS: IBUPROFEN 800 MG TABLET PO SCH (22:58)
[2019-09-02] MEDS: FAMOTIDINE 20 MG TABLET PO SCH (22:58)
[2019-09-03] MEDS: ACETAMINOPHEN WITH CODEINE #3 TABLET PO PRN ×3 (01:14→17:44)
[2019-09-03] MEDS: IBUPROFEN 800 MG TABLET PO SCH ×3 (06:15→21:53)
[2019-09-03 07:28] LABS: HEMATOCRIT 28.2 % (36.0-47.0); HEMOGLOBIN 9.3 g/dL (12.0-15.5); MEAN CORPUSCULAR HEMOGLOBIN 27.3 pg (27.0-33.4); MEAN CORPUSCULAR HGB CONC 33.1 g/dL (32.0-36.0); MEAN CORPUSCULAR VOLUME 83 fl (80-97); PLATELET COUNT 134 10^3/uL (150-450); RED BLOOD COUNT 3.41 10^6/uL (3.72-5.28); WHITE BLOOD COUNT 11.7 10^3/uL (4.0-10.5)
[2019-09-03] MEDS ORDERED: INFLUENZA QUAD (6MOS+) 2019-20 VAC 0.5 ML SYR IM ONE (08:00)
[2019-09-03] MEDS: FAMOTIDINE 20 MG TABLET PO SCH ×2 (09:50→21:53)
[2019-09-03] MEDS: DOCUSATE SODIUM 100 MG CAPSULE PO SCH ×3 (09:50→17:41)
[2019-09-03] MEDS: SENNOSIDES/DOCUSATE 8.6-50 MG 1 EACH TABLET PO SCH (09:50)
[2019-09-03] MEDS: PRENATAL VITAMIN W DHA CAPSULE PO SCH (09:50)
[2019-09-03] MEDS: FERROUS SULFATE 325 MG TABLET PO SCH ×3 (09:50→17:41)
--- NOTE | 2019-09-03 10:37 | PDOC PROGRESS REPORT ---
Subjective-OB Progress Note for:: 09/03/19 - PP Day #1, doing well, no complaints, Hx GDM, Bottle feeding, B+, Rubella immune Physical Exam (OB) Vital Signs: Temp Pulse Resp BP Pulse Ox 98.3 F 85 18 106/64 99 09/03/19 07:41 09/03/19 07:41 09/03/19 07:41 09/03/19 07:41 09/03/19 07:41 Intake & Output 09/02/19 09/03/19 09/04/19 06:59 06:59 06:59 Intake Total 1000 1000 Balance 1000 1000 Weight 107.7 kg - General General Appearance: Appears well, Alert In distress: None - PIH/Pre-Eclampsia Headache: Absent Epigastric Pain: No Visual Changes: No - Lochia Lochia Amount: Small 10-25 ml Lochia Color: Rubra/Red - Abdomen Description: Soft, Round Hernia Present: No Fundal Description: Firm, Midline Fundal Height: u/u - u/2 - Respiratory Respiratory Status: No respiratory distress - Abdominal Inspection: Normal Distension: No distension Tenderness: Nontender - Genitourinary Genitourinary Note: voiding - Extremities Upper extremity: Normal inspection Lower extremities: Normal inspection - Neurological Cognition: Normal Orientation: AAOx4 - Psychological Associated symptoms: Normal affect, Normal mood - Skin Skin Temperature: Warm Skin Moisture: Dry Objective-Diagnostic Laboratory: 09/03/19 06:36 09/03/19 06:36 WBC 11.7 H RBC 3.41 L Hgb 9.3 L Hct 28.2 L MCV 83 MCH 27.3 MCHC 33.1 RDW 15.0 H Plt Count 134 L Assessment and Plan(PN) - Assessment and Plan (1) (normal spontaneous vaginal delivery) Is this a current diagnosis for this admission?: Yes (2) 39 weeks gestation of Is this a current diagnosis for this admission?: Yes (3) Gestational diabetes Qualifiers: Gestational diabetes mellitus control: diet-controlled Is this a current diagnosis for this admission?: Yes (4) Anemia, Is this a current diagnosis for this admission?: Yes - Time Spent with Patient Time with patient: Less than 15 minutes Medications reviewed and adjusted accordingly: Yes - Disposition Anticipated Discharge: Home Within: within 24 hours
[2019-09-04] MEDS ORDERED: ACETAMINOPHEN WITH CODEINE #3 TABLET PO PRN (00:19)
[2019-09-04] MEDS: IBUPROFEN 800 MG TABLET PO SCH (05:15)
[2019-09-04 07:39] VITALS: BP 110/66
[2019-09-04] MEDS: SENNOSIDES/DOCUSATE 8.6-50 MG 1 EACH TABLET PO SCH (09:25)
[2019-09-04] MEDS: DOCUSATE SODIUM 100 MG CAPSULE PO SCH (09:25)
[2019-09-04] MEDS: FERROUS SULFATE 325 MG TABLET PO SCH (09:26)
--- NOTE | 2019-09-04 09:29 | PDOC DISCHARGE SUMMARY ---
Impression - Admit/DC Date/PCP Admission Date/Primary Care Provider: 09/01/19 18:06 CHELO TURK MD Discharge Date: 09/04/19 - PP Day #2, doing well, no complaints, bottlefeeding. IOL for GDM. - Discharge Diagnosis (1) (normal spontaneous vaginal delivery) Is this a current diagnosis for this admission?: Yes (2) 39 weeks gestation of Is this a current diagnosis for this admission?: Yes (3) Gestational diabetes Is this a current diagnosis for this admission?: Yes (4) Anemia, Is this a current diagnosis for this admission?: Yes - Additional Information Resuscitation Status: Full Code Discharge Diet: As Tolerated, Regular Discharge Activity: Activity As Tolerated, No Lifting Over 10 Pounds, Pelvic Rest Referrals: CHELO TURK MD [Primary Care Provider] - Prescriptions: Ferrous Sulfate [Feosol 325 mg Tablet] 325 mg PO DAILY 30 Days #30 tablet Ibuprofen [Motrin 800 mg Tablet] 800 mg PO Q8 #60 tablet Home Medications: Pnv No.95/Ferrous Fum/Folic AC [ Vitamins Tablet] 1 tab PO DAILY 05/31/19 Ferrous Sulfate [Feosol 325 mg Tablet] 325 mg PO DAILY 30 Days #30 tablet 1 Ibuprofen [Motrin 800 mg Tablet] 800 mg PO Q8 #60 tablet 09/04/19 HPI Reason(s) for Admission: Induction of Labor, Obstetric Complications, Gestional Diabetes Procedures: NST, Ultrasound Intrapartum Procedure(s): Spontaneous Vaginal Delivery Hospital Course Hospital Course: normal Results Laboratory Results: WBC 11.7 10^3/uL (4.0-10.5) H 09/03/19 06:36 RBC 3.41 10^6/uL (3.72-5.28) L 09/03/19 06:36 Hgb 9.3 g/dL (12.0-15.5) L 09/03/19 06:36 Hct 28.2 % (36.0-47.0) L 09/03/19 06:36 MCV 83 fl (80-97) 09/03/19 06:36 MCH 27.3 pg (27.0-33.4) 09/03/19 06:36 MCHC 33.1 g/dL (32.0-36.0) 09/03/19 06:36 RDW 15.0 % (11.5-14.0) H 09/03/19 06:36 Plt Count 134 10^3/uL (150-450) L 09/03/19 06:36 Lymph % (Auto) 28.5 % (13-45) 09/01/19 18:38 [place]wey % (Auto) 7.8 % (3-13) 09/01/19 18:38 Eos % (Auto) 0.4 % (0-6) 09/01/19 18:38 Baso % (Auto) 0.2 % (0-2) 09/01/19 18:38 Absolute Neuts (auto) 5.3 10^3/uL (1.7-8.2) 09/01/19 18:38 Absolute Lymphs (auto) 2.4 10^3/uL (0.5-4.7) 09/01/19 18:38 Absolute Monos (auto) 0.7 10^3/uL (0.1-1.4) 09/01/19 18:38 Absolute Eos (auto) 0.0 10^3/uL (0.0-0.6) 09/01/19 18:38 Absolute Basos (auto) 0.0 10^3/uL (0.0-0.2) 09/01/19 18:38 Seg Neutrophils % 63.1 % (42-78) 09/01/19 18:38 POC Glucose 125 mg/dL (70-110) H 09/01/19 22:48 Urine Color YELLOW 09/01/19 18:20 Urine Appearance CLOUDY 09/01/19 18:20 Urine pH 7.0 (5.0-9.0) 09/01/19 18:20 Ur Specific [place] 1.015 09/01/19 18:20 Urine Protein 30 mg/dL (NEGATIVE) H 09/01/19 18:20 Urine Glucose (UA) NEGATIVE mg/dL (NEGATIVE) 09/01/19 18:20 Urine Ketones NEGATIVE mg/dL (NEGATIVE) 09/01/19 18:20 Urine Blood NEGATIVE (NEGATIVE) 09/01/19 18:20 Urine Nitrite NEGATIVE (NEGATIVE) 09/01/19 18:20 Urine Bilirubin NEGATIVE (NEGATIVE) 09/01/19 18:20 Urine Urobilinogen 2.0 mg/dL (<2.0) H 09/01/19 18:20 Ur Leukocyte Esterase LARGE (NEGATIVE) H 09/01/19 18:20 Urine Ascorbic Acid 20 (NEGATIVE) H 09/01/19 18:20 Urine Opiates Screen NEGATIVE 09/01/19 18:20 Urine Methadone Screen NEGATIVE 09/01/19 18:20 Ur Barbiturates Screen NEGATIVE 09/01/19 18:20 Ur Phencyclidine Scrn NEGATIVE 09/01/19 18:20 Ur Amphetamines Screen NEGATIVE 09/01/19 18:20 U Benzodiazepines Scrn NEGATIVE 09/01/19 18:20 Urine Cocaine Screen NEGATIVE 09/01/19 18:20 U Marijuana (THC) Screen UNCONFIRMED POSITIVE 09/01/19 18:20 RPR NONREACTIVE (NONREACTIVE) 09/01/19 18:38 Blood Type B POSITIVE 09/01/19 18:38 Antibody Screen NEGATIVE 09/01/19 18:38 Plan Plan of Treatment: d/c to home, f/u with [facility] in 2 wks for BTL consultation
[2019-09-04] MEDS: FAMOTIDINE 20 MG TABLET PO SCH (09:31)
[2019-09-04] MEDS: PRENATAL VITAMIN W DHA CAPSULE PO SCH (09:41)
== END 2019-09-04 11:02 | disposition home or self-care (01) | DRG 806 ==
LOC: LR 18:06 → 2S 09-02 20:00
PROVIDERS: ADMIT Obstetrics & Gynecology Gynecology; ATTEND Obstetrics & Gynecology Gynecology
PROC: 10D07Z6 Extraction of Products of Conception, Vacuum, Via Natural or Artificial Opening (ICD-10-PCS; principal; 2019-09-02)
PROC: 3E0234Z Introduction of Serum, Toxoid and Vaccine into Muscle, Percutaneous Approach (ICD-10-PCS; 2019-09-04)
DX: O24.429 Gestational diabetes mellitus in childbirth, unspecified control (principal); O99.324 Drug use complicating childbirth; Z37.0 Single live birth; O99.334 Smoking (tobacco) complicating childbirth; F17.210 Nicotine dependence, cigarettes, uncomplicated; F12.90 Cannabis use, unspecified, uncomplicated; O76 Abnormality in fetal heart rate and rhythm complicating labor and delivery; Z3A.38 38 weeks gestation of pregnancy; Z23 Encounter for immunization
CPT/HCPCS: 36415; 80307; 80349; 81005; 82962; 85025; 85027; 86592; 86850; 86900; 86901; 90686; G0480; J2370; J2590; J3010; J3490

== ENCOUNTER 2019-10-16 17:58 | Emergency (ER) | payer BC, MEDICAID ==
[2019-10-16] MEDS ORDERED: PENICILLIN V POTASSIUM 500 MG TABLET PO ONE (18:07)
--- NOTE | 2019-10-16 18:08 | ER Document Report ---
HPI - HPI Patient complains to provider of: Dental pain Time Seen by Provider: 10/16/19 18:03 Onset: This morning Onset/Duration: Sudden Quality of pain: Achy Pain Level: 5 Context: This 34-year-old female presents emergency department with complaints of dental pain to the left upper gums and right lower gums. Patient reports just started hurting today. Denies broken tooth. Reports she has an abscess on the right lower gum in her left upper gums just started hurting. Denies fever vomiting diarrhea. Denies pain increasing with air or temperature. She does not have dental insurance. Associated Symptoms: None Exacerbated by: Denies Relieved by: Denies Similar symptoms previously: No Recently seen / treated by doctor: No - REPRODUCTIVE Reproductive: DENIES: : Past Medical History - General Information source: Patient Last Menstrual Period: Current - Social History Smoking Status: Unknown if Ever Smoked Frequency of alcohol use: None Drug Abuse: None Family History: Reviewed & Not Pertinent, Hypertension Patient has suicidal ideation: No Patient has homicidal ideation: No - Past Medical History Cardiac Medical History: Denies: Hx Coronary Artery Disease, Hx Heart Attack, Hx Hypertension Pulmonary Medical History: Denies: Hx Asthma, Hx Bronchitis, Hx COPD, Hx Pneumonia Neurological Medical History: Denies: Hx Cerebrovascular Accident, Hx Seizures Renal/ Medical History: Denies: Hx Peritoneal Dialysis Musculoskeletal Medical History: Denies Hx Arthritis Psychiatric Medical History: Reports: Hx Anxiety Past Surgical History: Reports: Other - Axillary surgery for hidradenitis suppurativa - Immunizations Hx Diphtheria, Pertussis, Tetanus Vaccination: Yes Vertical Provider Document - CONSTITUTIONAL Agree With Documented VS: Yes Exam Limitations: No Limitations General Appearance: WD/WN, No Apparent Distress - INFECTION CONTROL TRAVEL OUTSIDE OF THE [place] IN LAST 30 DAYS: No - HEENT HEENT: Atraumatic, Normocephalic. negative: Pharyngeal Erythema Mouth Diagram: 1 - Patient reports her gums are hurting. No erythema no swelling no pustule opens mouth wide clear voice 2 - Patient reports she has an abscess. No erythema no swelling no pustule opens mouth wide clear voice - NECK Neck: Normal Inspection, Supple. negative: Lymphadenopathy-Left, Lymphadenopathy-Right - RESPIRATORY Respiratory: Breath Sounds Normal, No Respiratory Distress - CARDIOVASCULAR Cardiovascular: Regular Rate - MUSCULOSKELETAL/EXTREMETIES Musculoskeletal/Extremeties: LAVONNE SALINAS - NEURO Level of Consciousness: Awake, Alert, Appropriate - DERM Integumentary: Warm, Dry Course - Re-evaluation Re-evalutation: 10/16/19 18:18 Patient presents emergency department with mouth pain. Reports gums hurting on the left upper side of her mouth and the right lower side. Reports she has an abscess on the right lower gums near #30. No abscess noted, no swelling no pustule. Patient opens her mouth wide no trismus. Clear voice. Good airway. Patient was given a list of dental resources. She was also prescribed Motrin with Pen-Vee K while she was here. She was instructed on the importance of follow-up with a dentist this week. She verbalized understanding to all instructions. Dictation of this chart was performed using voice recognition software; therefore, there may be some unintended grammatical errors. Discharge - Discharge Clinical Impression: Pain, dental Condition: Stable Disposition: HOME, SELF-CARE Instructions: [facility], Use of Dzqu-Zom-Yoxuopa Ibuprofen ([facility]), Penicillin V K ([facility]), Toothache ([facility]) Additional Instructions: *You have been evaluated for dental pain *Take medications as prescribed Take ibuprofen as indicated for pain *Follow up with dentist this week *Return to ED for worsening condition, changes, needs Prescriptions: Penicillin V Potassium [Penicillin Vk 500 mg Tablet] 500 mg PO BID #20 tablet Referrals: CHELO TURK MD [Primary Care Provider] - Follow up as needed
[2019-10-16 18:26] VITALS: BP 149/87
== END 2019-10-16 18:20 | disposition home or self-care (01) ==
LOC: ER 17:58
DX: K08.89 Other specified disorders of teeth and supporting structures (principal)
CPT/HCPCS: 99282